=== PATIENT | female | born 1975 | race Caucasian/White ===

== ENCOUNTER 2016-09-26 13:24 | Emergency (ER) | payer SELFPAY ==
--- NOTE | 2016-09-26 13:38 | ER Document Report ---
ED Medical Screen (RME) - General Stated Complaint: BODY ACHES,CHILLS,FEVER,COUGH Mode of Arrival: Ambulatory Information source: Patient Notes: Patient presents to the emergency department with complaints of body aches that started last night. Fever of 103 last night with diarrhea this morning. Patient did not obtain a flu vaccine this year. Patient took 2 Excedrin at 9: 00 this morning. I have greeted and performed a rapid initial assessment of this patient. A comprehensive ED assessment and evaluation of the patient, analysis of test results and completion of the medical decision making process will be conducted by additional ED providers. TRAVEL OUTSIDE OF THE [place] IN LAST 30 DAYS: No - Related Data Allergies/Adverse Reactions: No Known Allergies Allergy (Verified 08/15/16 09:49) Past Medical History Skin Medical History: Reports Hx Psoriasis
--- NOTE | 2016-09-26 14:46 | ER Document Report ---
ED Flu Like - General Chief Complaint: Back Pain Stated Complaint: BODY ACHES,CHILLS,FEVER,COUGH Mode of Arrival: Ambulatory Notes: Patient has flulike symptoms. She says that she started having body aches Saturday evening. Yesterday she started running a fever and developed a cough and has generalized body aches as well as a bad headache. The cough was somewhat productive at first, but now it's basically dry. She's not had any vomiting, but has had a little bit of diarrhea. LMP September 10. TRAVEL OUTSIDE OF THE [place] IN LAST 30 DAYS: No - Related Data Allergies/Adverse Reactions: No Known Allergies Allergy (Verified 09/26/16 13:38) Past Medical History - General Information source: Patient - Social History Smoking Status: Never Smoker Cigarette use (# per day): No Chew tobacco use (# tins/day): No Frequency of alcohol use: None Drug Abuse: None Family History: Reviewed & Not Pertinent Patient has suicidal ideation: No Patient has homicidal ideation: No Skin Medical History: Reports Hx Psoriasis Review of Systems - Review of Systems Notes: REVIEW OF SYSTEMS: CONSTITUTIONAL : Has had fever. EENT: Denies eye, ear, nose or mouth or throat pain or other symptoms. CARDIOVASCULAR: Denies chest pain. RESPIRATORY: See history of present illness. GASTROINTESTINAL: Denies abdominal pain or nausea, vomiting, but some diarrhea. GENITOURINARY: Denies difficulty or painful urinating, urinary frequency, blood in urine. MUSCULOSKELETAL: Denies back or neck pain. Denies joint pain or swelling. SKIN: Denies rash or skin lesions. NEUROLOGICAL: Denies LOC or altered mental status. Has a bad headache. Denies sensory loss or motor deficits. ALL OTHER SYSTEMS REVIEWED AND NEGATIVE. Physical Exam - Vital signs Interpretation: Febrile. No: Hypotensive, Hypoxic - Notes Notes: PHYSICAL EXAMINATION: GENERAL: Well-appearing, in no acute distress. Anxious. HEAD: Atraumatic, normocephalic. EYES: Pupils equal round and reactive to light, extraocular movements intact. ENT: oropharynx clear without exudates. Moist mucous membranes. NECK: Normal range of motion, supple. LUNGS: Breath sounds clear and equal bilaterally. HEART: Regular rate and rhythm without murmurs. ABDOMEN: Soft, nontender. No guarding or rebound. NEUROLOGICAL: Normal speech, normal gait. Normal sensory, motor, and reflex exams. Awake, alert, and oriented x3. Cranial nerves normal. SKIN: Warm, dry, no rashes. Course - Re-evaluation Re-evalutation: Discussed treatment options with this patient. She's basically had the onset of symptoms now for almost 36 hours. I don't think the benefits that she'll receive taking Tamiflu are cost-effective in this case and have advised them so. I will write a prescription for Tamiflu the patient wishes to have it but she's declined. Discharge - Discharge Clinical Impression: Influenza A Condition: Stable Disposition: HOME, SELF-CARE Additional Instructions: INFLUENZA: The physician feels that you have influenza -- the "flu". Influenza is an infection caused by a virus. Symptoms include generalized aching, fever, headache, dry cough, and fatigue. Some patients with the flu also have nausea, vomiting, and diarrhea. The fever and aches usually last two to four days, with the cough persisting another one to two weeks. Treatment of the flu, for the most part, is simply treatment of symptoms. Rest, drink plenty of fluids, and use acetaminophen for fever and aches. Do not take aspirin. There is an anti-viral medication, called Tamiflu, which may help in "type A" flu, but it's not helpful in every case of flu, and only works if started within the first 24 - 48 hours of the start of symptoms. The physician will determine whether this medication can help you. To prevent spread of the virus, use good handwashing. Shared toys should be cleaned with disinfectant. Clean the toilets, sinks, and counter surfaces in bathrooms. Launder clothing in hot water. What are conditions that should receive medical attention? The development of difficulty breathing. Lip color changes to blue or purple. Persistent vomiting and unable to keep liquids down with signs of dehydration such as: dizziness when standing, unable to urinate, or if child/infant is crying no tears are noticed. Is less responsive than normal or becomes confused. How do I decrease the spread of flu in my home? Taking care of the sick patient at home: Keep the sick person in a room separate from the common areas of the house. Keep the "sickroom" door closed. If the person with the flu needs to leave the home, they should cover their nose/mouth when coughing or sneezing and wear a disposable (surgical) mask if available. These masks may be available at your local pharmacy, medical supply and hardware store. If the sick person is in common areas of the house, have them wear a surgical mask. If possible, have the sick person use a separate bathroom that should be cleaned daily with a household disinfectant. If you are the caregiver: Avoid being face to face with the sick adult person as much as possible. Try to stay at least 6 feet away and wear a disposable surgical mask when possible. When holding small children who are sick, place their chin on your shoulder so that they will not cough in your face. Wash your hands after you touch the sick person or handle their tissues and laundry. Wear a mask if you leave home, as you may be infected from taking care of someone and not know it yet. Watch yourself and others in the home for flu symptoms and contact your doctor if symptoms occur. NOTE: Antiviral medication used to reduce the symptoms of the flu works only if taken within 48 hours, and best within 24 hours of symptom onset. Household Cleaning, laundry and waste disposal: Tissues and other disposable items used by the sick person should be thrown away in the trash. Wash your hands after touching these used items. No special waste disposal is required. Keep surfaces (especially bedside tables, bathroom surfaces, and toys for children) clean by wiping them down with a safe household disinfectant according to the directions on the product label. Per Center for Disease Control advice, most people will not receive testing to confirm flu. Also based on the person's health history and onset of symptoms, not all patients will receive prescriptions for antiviral medications. If you have questions related to this, please ask your healthcare provider. For more information, you can call the Centers for Disease Control and Prevention (CDC) Hotline at 4-591-YLP-INFO This line is available in Telugu and Slovak, 24 hours a day, 7 days a week. Or www.[employer] or www.cdc.gov Flu-Like Illness Home Instructions: The influenza virus infection can cause a wide rage of symptoms, including: Fever, cough, sore throat, body aches, headaches, chills, fatigue, with some patients reporting diarrhea and vomiting Like seasonal influenza A, H1N1 ("swine flu")in humans can vary in severity from mild to severe Severe illness with pneumonia, respiratory failure and even is possible Certain groups might be more likely to develop a severe illness from H1N1 infection. Sometimes bacterial infections may occur at the same time as or after infection with influenza viruses and lead to pneumonias, ear infections, or sinus infections. How Flu Spreads The main way that influenza viruses spread is through respiratory droplets of coughs and sneezes. This can happen when someone with the infection coughs or sneezes and the particles fly through the air and land on other people and surfaces. If the person covers their mouth and nose with their hand but does not wash their hands immediately, then these germs are passed onto the next object that they touch. People with Influenza A or suspected H1N1 (swine flu) who are cared for at home should: Check with their doctor about any special care that they might need if they are or have a health condition such as diabetes, heart disease, asthma or emphysema. Also, limit caregiver to one (if possible). women or those with chronic health conditions should not take care of the flu patient unless necessary. Check with their doctor about whether or not medications are needed that may lessen the symptoms of the flu. Stay at home until 24 hours fever free without the use of fever reducing medication. Get plenty of rest and avoid other healthy people in your home. Drink plenty of clear liquids to keep from getting dehydrated. Take medications like Tylenol (Acetaminophen), Advil/Motrin/Nuprin ( Ibuprofen) or Aleve (Naproxen) for fevers and aches. All children under the age of 18 years of age should not take aspirin or products containing aspirin (e.g. Pepto Bismol), as this can cause a rare serious illness called Kelsy Syndrome. Over the counter medications for flu and colds may help, but it is very important to follow the package directions. Remember that the medicine may help the symptoms, but it will not help prevent others from getting sick if they are around you. Cover coughs and sneezes using your bent arm. Clean hands with soap and water or an alcohol-based hand rub often, especially after using tissues to cough or sneeze. Encourage hand washing frequently for all people living in the home! The sick person should not have visitors other than caregivers. Encourage concerned loved ones to call instead of visit. Avoid close contact with others-do not go to work or school while sick. USE OF ACETAMINOPHEN (Tylenol): Acetaminophen may be taken for pain relief or fever control. It's much safer than aspirin, offering a wider range of "safe" dosages. It is safe during . Some brand names are Tylenol, Panadol, Datril, Anacin 3, Tempra, and Liquiprin. Acetaminophen can be repeated every four hours. The following are maximum recommended dosages: WEIGHT Dose Drops Elixir Chewable( 80mg) (LBS.) drprs=droppers tsp=teaspoon >89 pounds or adults 650 mg to 900 mg Acetaminophen can be repeated every four hours. Maximum dose not to exceed 4000 mg a day. These maximum recommended dosages are slightly higher than the dosages written on the product container, but these dosages are very safe and below the toxic dosage for acetaminophen. ORAL NARCOTIC MEDICATION: You have been given a prescription for pain control. This medication is a narcotic. It's best taken with food, as nausea can result if taken on an empty stomach. Don't operate machinery or drive within six hours of taking this medication. Do not combine this medicine with alcohol, or with any medication which can cause sedation (such as cold tablets or sleeping pills) unless you get permission from the physician. Narcotics tend to cause constipation. If possible, drink plenty of fluids and eat a diet high in fiber and fruits. Antinausea Medication You have been given a medication to suppress nausea and vomiting. This type of medication can be given as a shot, pill, or suppository. It will usually last for many hours. Pills and shots usually last six to eight hours, suppositories last about 12 hours. For the typical illness, only one or two doses of the medication may be necessary. Mild lightheadedness may occur. This type of medicine can cause drowsiness. Do not drive or operate dangerous machinery while under its influence. Do not mix with alcohol. See your doctor at once if you have muscle spasms or tightness, or uncontrollable motions (particularly of the neck, mouth, or jaw). Persistent vomiting or severe lightheadedness should also be evaluated by the physician. FOLLOW-UP CARE: If you have been referred to a physician for follow-up care, call the physician s office for an appointment as you were instructed or within the next two days. If you experience worsening or a significant change in your symptoms, notify the physician immediately or return to the Emergency Department at any time for re-evaluation. As we discussed, it is likely too late to start taking Tamiflu to be of any benefit. Since it's over 24 hours since the onset of your symptoms, I recommend symptomatic treatment with something for nausea and something for your aches and pains and headache. Drink plenty of fluids. A note for work is being provided for you until Saturday. Prescriptions: Oxycodone HCl/Acetaminophen [Percocet 10-325 Mg Tablet] 1 each PO Q4HP PRN #15 tablet PRN Reason: Promethazine HCl [Phenergan 25 mg Tablet] 25 mg PO Q4HP PRN #20 tablet PRN Reason: Forms: Return to Work Referrals: ARVIN MATTHEWS MD [Primary Care Provider] - Follow up as needed
[2016-09-26 21:22] VITALS: BP 143/80
== END 2016-09-26 14:50 | disposition home or self-care (01) ==
LOC: ER 13:24
DX: J11.1 Influenza due to unidentified influenza virus with other respiratory manifestations (principal); R52 Pain, unspecified; R51 Headache; R05 Cough; R19.7 Diarrhea, unspecified; R50.9 Fever, unspecified
CPT/HCPCS: 87804; 99283

== ENCOUNTER 2018-01-31 19:31 | Emergency (ER) | payer SELFPAY ==
--- NOTE | 2018-01-31 20:33 | ER Document Report ---
ED GI Bleed / Rectal Pain - General Chief Complaint: Hemorrhoids Stated Complaint: RECTAL PAIN Time Seen by Provider: 01/31/18 20:25 Mode of Arrival: Ambulatory Information source: Patient TRAVEL OUTSIDE OF THE [place] IN LAST 30 DAYS: No - HPI Patient complains to provider of: Rectal pain Onset: Last week Notes: Patient is here with complaints of rectal pain. She states that she has been having rectal pain for the past several days. She states that she was having a lot of diarrhea due to stress. She states that the diarrhea has resolved but now she is having a lot of rectal pain. She has been using [id number] medications for hemorrhoids but over the last 2 days the pain is gotten much worse. No fever. No drainage. No nausea, vomiting. No abdominal pain. No chest pain or shortness of breath. No rash. No other complaints at this time. Nothing makes her symptoms better or worse. - Related Data Allergies/Adverse Reactions: No Known Allergies Allergy (Verified 09/26/16 13:38) Past Medical History - Social History Smoking Status: Current Every Day Smoker Family History: Reviewed & Not Pertinent Renal/ Medical History: Denies: Hx Peritoneal Dialysis Skin Medical History: Reports Hx Psoriasis Review of Systems - Review of Systems -: Yes All other systems reviewed and negative Physical Exam - Vital signs Vitals: Temp Pulse Resp BP Pulse Ox 98.7 F 81 16 130/69 H 99 01/31/18 19:52 01/31/18 19:52 01/31/18 19:52 01/31/18 19:52 01/31/18 19:52 - Notes Notes: GENERAL: alert, cooperative, nontoxic, no distress. HEAD: normocephalic, atraumatic EYES: conjunctiva pink without discharge, no external redness or swelling. EARS: no external swelling, no external redness NOSE: atraumatic, no external swelling MOUTH/THROAT: mucous membranes moist and pink, posterior pharynx without erythema, swelling, exudate. No trismus or drooling. NECK: soft, supple, full range of motion, no meningismus. CHEST: no distress, lungs clear and equal throughout. No wheezing, rales, rhonchi. CARDIAC: regular rate and rhythm, no murmur, normal capillary refill, normal pulses. No peripheral edema noted. ABDOMEN: Soft, nontender. BACK: full range of motion, no CVA tenderness. EXTREMITIES: full range of motion of all extremities. No redness, no swelling. NEURO: alert and oriented x 3, no focal deficits, full range of motion of all extremities. PYSCH: appropriate mood, affect. Patient is cooperative. SKIN: pink, warm, dry, no rash. RECTAL: Performed with female enterer at the bedside. No external lesions. No thrombosed hemorrhoids. Normal rectal tone. Possible tender mass on the right in the deeper rectal area. No drainage. Course - Re-evaluation Re-evalutation: 01/31/18 23:39 Patient is nontoxic appearing with stable vitals. She is here with complaints of rectal pain. She is noted to have some rectal pain on deep rectal exam. It is possible that she could have some internal hemorrhoid as a source of her pain. This point the patient will be discharged home with Anusol suppositories as well as some Sweeden. She will be given referral to GI. She is instructed to drink plenty fluids. Eat a high-fiber diet. To follow-up with GI if not better in the next week, and to follow-up sooner if she develops worsening pain , high fever, persistent vomiting, or has any further concerns. The patient is noted to have elevated blood pressure during today's emergency department visit. The patient was informed of this finding. The patient was instructed that this may be related to pre-hypertension and requires further evaluation with a primary care provider. The patient has no hypertensive symptoms at this time. The patient's emergency department workup and current diagnosis were explained to the patient and or family. Follow-up instructions were provided. Medications if prescribed were discussed. Instructions for when to return to the emergency department including specific worrisome symptoms were discussed with the patient and/or family. - Vital Signs Vital signs: Temp Pulse Resp BP Pulse Ox 98.7 F 81 16 130/69 H 99 01/31/18 19:52 01/31/18 19:52 01/31/18 19:52 01/31/18 19:52 01/31/18 19:52 - Laboratory Result Diagrams: 01/31/18 21:40 01/31/18 21:40 Laboratory results interpreted by me: 01/31/18 01/31/18 21:40 21:40 Hgb 11.6 L Hct 35.0 L Sodium 146.0 H Potassium 3.5 L Chloride 108 H - Diagnostic Test Radiology reviewed: Image reviewed, Reports reviewed - No acute abnormality a CT of the abdomen and pelvis with IV contrast Discharge - Discharge Clinical Impression: Rectal pain, Acute hemorrhoid Condition: Stable Disposition: HOME, SELF-CARE Instructions: Hemorrhoids ([facility]) Additional Instructions: Take medication as prescribed. Drink plenty fluids. Follow-up with GI if not better in 1 week, sooner for worsening pain, fever, bleeding, persistent vomiting, or for any further concerns. Your blood pressure was elevated during today's visit. Have this rechecked with your doctor. The medication you were prescribed today may cause drowsiness. Do not drive or operate heavy machinery while taking this medication. Prescriptions: Hydrocodone/Acetaminophen [Sweeden 5-325 mg Tablet] 2 tab PO Q6H PRN #15 tab PRN Reason: Hydrocortisone Acetate [Anusol Hc 25 mg Supp.rect] 1 supp.rect [place] BID #14 supp.rect Forms: Elevated Blood Pressure, Smoking Cessation Education Referrals: ARVIN MATTHEWS MD [Primary Care Provider] - Follow up as needed ERMELINDA SOLER MD [ACTIVE STAFF] - Follow up as needed ANNA TORRES MD [ACTIVE STAFF] - Follow up as needed
[2018-01-31] MEDS ORDERED: KETOROLAC TROMETHAMINE INJ/PF 30 MG/1 ML SDV IV ONE (21:06)
[2018-01-31 21:57] LABS: ABSOLUTE LYMPHOCYTES (AUTO) 1.8 10^3/uL (0.5-4.7); ABSOLUTE MONOCYTES (AUTO) 0.4 10^3/uL (0.1-1.4); ABSOLUTE NEUT (AUTO) 3.6 10^3/uL (1.7-8.2); BASOPHILS % (AUTO) 0.5 % (0-2); EOSINOPHILS % (AUTO) 0.5 % (0-6); HEMOGLOBIN 11.6 g/dL (12.0-15.5); LYMPHOCYTES % (AUTO) 30.6 % (13-45); MEAN CORPUSCULAR HEMOGLOBIN 29.1 pg (27.0-33.4); MEAN CORPUSCULAR HGB CONC 33.3 g/dL (32.0-36.0); MEAN CORPUSCULAR VOLUME 88 fl (80-97); MONOCYTES % (AUTO) 6.5 % (3-13); PLATELET COUNT 248 10^3/uL (150-450); SEGMENTED NEUTROPHILS % (AUTO) 61.9 % (42-78); TOTAL CELLS COUNTED % (AUTO) 100 %; WHITE BLOOD COUNT 5.8 10^3/uL (4.0-10.5)
[2018-01-31 21:59] LABS: ALANINE AMINOTRANSFERASE 23 U/L (9-52); ALBUMIN 4.3 g/dL (3.5-5.0); ALKALINE PHOSPHATASE 66 U/L (38-126); ANION GAP 13 (5-19); ASPARTATE AMINO TRANSFERASE 20 U/L (14-36); BILIRUBIN,DIRECT 0.3 mg/dL (0.0-0.4); BILIRUBIN,TOTAL 0.4 mg/dL (0.2-1.3); BLOOD UREA NITROGEN 16 mg/dL (7-20); CALCIUM 9.8 mg/dL (8.4-10.2); CARBON DIOXIDE 25 mmol/L (22-30); CHLORIDE 108 mmol/L (98-107); GLUCOSE 90 mg/dL (75-110); POTASSIUM 3.5 mmol/L (3.6-5.0); TOTAL PROTEIN 6.7 g/dL (6.3-8.2)
--- NOTE | 2018-01-31 23:04 | RADIOLOGY REPORT (SQ) ---
EXAM DESCRIPTION: CT ABDOMEN PELVIS WITH IV CONTRAST CLINICAL HISTORY: 43 years Female, right rectal pain, possible mass on exam Comparison: None. Technique: IV contrast. Coronal and sagittal reformat. This exam was performed according to our departmental dose-optimization program, which includes automated exposure control, adjustment of the mA and/or kV according to patient size and/or use of iterative reconstruction technique.[facility]: Dose Right [facility]: CareDose [facility]: Dose Right [facility]: Teradose 4D [facility]: [employer] LIMITATIONS: None. Findings: No ascites. No rectal mass discerned, as queried. Prominent nonspecific cervix with nabothian cyst. Inferior thorax, likely benign 0.4 cm low-attenuation cyst or hemangioma right hepatic lobe, cholecystectomy clips, pancreas, spleen, adrenals, renal system, gastrointestinal tract, no evidence of appendicitis, lymphatics, vasculature, and musculoskeleton appear otherwise unremarkable. IMPRESSION: No acute findings.
[2018-02-01 00:07] VITALS: BP 121/81
== END 2018-02-01 00:05 | disposition home or self-care (01) ==
LOC: ER 19:31
DX: K64.8 Other hemorrhoids (principal); R19.7 Diarrhea, unspecified
CPT/HCPCS: 99284; 96374; 36415; 85025; 80053; 74177; J1885

== ENCOUNTER 2018-08-24 19:17 | Emergency (ER) | payer OTHER ==
[2018-08-24 19:34] VITALS: BP 124/54
[2018-08-24] MEDS ORDERED: IBUPROFEN 800 MG TABLET PO ONE (19:44)
--- NOTE | 2018-08-24 19:45 | ER Document Report ---
HPI - HPI Patient complains to provider of: Anger injury Time Seen by Provider: 08/24/18 19:39 Onset: Yesterday Onset/Duration: Sudden Quality of pain: Achy Pain Level: 4 Context: Patient states that she was carrying a dog and almost dropped it and as she was attempting to catch the dog she struck her hand against the floor. Patient complains of left fifth finger tenderness, swelling and bruising. Patient is right-hand dominant. Associated Symptoms: Other - Left fifth finger injury Exacerbated by: Movement Relieved by: Denies Similar symptoms previously: No Recently seen / treated by doctor: No - ROS ROS below otherwise negative: Yes Systems Reviewed and Negative: Yes All other systems reviewed and negative - GASTROINTESTINAL Gastrointestinal: DENIES: Nausea - REPRODUCTIVE Reproductive: DENIES: : - MUSCULOSKELETAL Musculoskeletal: REPORTS: Extremity pain, Swelling - DERM Skin Color: Ecchymosis Skin Problems: None Past Medical History - General Information source: Patient - Social History Smoking Status: Never Smoker Frequency of alcohol use: None Drug Abuse: None Occupation: Animal house Family History: Reviewed & Not Pertinent Renal/ Medical History: Denies: Hx Peritoneal Dialysis Skin Medical History: Reports Hx Psoriasis Past Surgical History: Reports: Hx Cholecystectomy Vertical Provider Document - CONSTITUTIONAL Agree With Documented VS: Yes Exam Limitations: No Limitations General Appearance: WD/WN, No Apparent Distress - INFECTION CONTROL TRAVEL OUTSIDE OF THE [place] IN LAST 30 DAYS: No - HEENT HEENT: Atraumatic, Normocephalic - NECK Neck: Normal Inspection - RESPIRATORY Respiratory: No Respiratory Distress - CARDIOVASCULAR Pulses: Normal: Radial - BACK Back: Normal Inspection - MUSCULOSKELETAL/EXTREMETIES Musculoskeletal/Extremeties: Tender - Left fifth finger tenderness with swelling and ecchymosis, no obvious tendon deficit, Edema, Eccymosis Notes: Tenderness worse about the proximal middle phalanx - NEURO Level of Consciousness: Awake, Alert, Appropriate Motor/Sensory: No Motor Deficit - DERM Integumentary: Warm, Dry, No Rash Course - Vital Signs Vital signs: Temp Pulse Resp BP Pulse Ox 97.7 F 74 124/54 L 99 08/24/18 19:33 08/24/18 19:33 08/24/18 19:33 08/24/18 19:33 - Diagnostic Test Radiology reviewed: Image reviewed Procedures - Immobilization Left Finger 5th digit Pre-Proc Neuro Vasc Exam: Normal Immobilizer type: Finger splint (Static) Performed by: PCT Post-Proc Neuro Vasc Exam: Normal Alignment checked and good: Yes Discharge - Discharge Clinical Impression: Finger fracture, left Qualifiers: Encounter type: initial encounter Finger: little finger Fracture type: closed Phalanx: middle Fracture alignment: displaced Qualified Code(s): S62.627A - Displaced fracture of middle phalanx of left little finger, initial encounter for closed fracture Condition: Stable Disposition: HOME, SELF-CARE Instructions: Fractured Finger ([facility]), Ice & Elevation ([facility]), Splint Precautions ([facility]) Additional Instructions: Return immediately for any new or worsening symptoms Followup with your primary care provider, call tomorrow to make a followup appointment Follow-up with orthopedics for further evaluation, call tomorrow for an appointment Prescriptions: Naproxen [Naprosyn 250 Nmg Tablet] 1 tab PO BID #14 tablet Referrals: ARVIN MATTHEWS MD [Primary Care Provider] - Follow up as needed [facility] [Provider Group] - Follow up tomorrow
[2018-08-24] MEDS ORDERED: HYDROCODONE/ACETAMINOPHEN 5-325 MG (6 TAB/ER DISP) PO PRN (20:03)
--- NOTE | 2018-08-24 20:42 | RADIOLOGY REPORT (SQ) ---
EXAM DESCRIPTION: FINGER LEFT COMPLETED DATE/TIME: 08/24/2018 8:19 pm REASON FOR STUDY: Finger hyperextended/injured. Pain, swelling COMPARISON: None. NUMBER OF VIEWS: Three views. TECHNIQUE: AP view of the left hand and lateral, and oblique images acquired of the left fifth finge r. LIMITATIONS: None. FINDINGS: MINERALIZATION: Normal. BONES: There is a mildly displaced fracture at the base of the 5th middle phalanx with the fracture l ine extending into the proximal interphalangeal joint. SOFT TISSUES: There is mild diffuse soft tissue swelling at the left 5th finger. No radiopaque forei gn body is identified. IMPRESSION: Mildly displaced intra-articular fracture at the base of the 5th middle phalanx. TECHNICAL DOCUMENTATION: JOB ID: [id number] 2010 [employer]- All Rights Reserved Reading location - IP/workstation name: [email or web address]
== END 2018-08-24 20:36 | disposition home or self-care (01) ==
LOC: ER 19:17
PROC: 2W3KX1Z Immobilization of Left Finger using Splint (ICD-10-PCS; principal; 2018-08-24)
DX: S62.627A Displaced fracture of middle phalanx of left little finger, initial encounter for closed fracture (principal); M79.645 Pain in left finger(s); W22.8XXA Striking against or struck by other objects, initial encounter
CPT/HCPCS: 99283

== ENCOUNTER 2019-02-22 00:55 | Emergency (ER) | payer MEDICAID, OTHER ==
[2019-02-22] MEDS ORDERED: MORPHINE SULFATE 10 MG/ML INJ IV PRN (01:54)
[2019-02-22] MEDS ORDERED: METOCLOPRAMIDE HCL INJ/PF 10 MG/2 ML SDV IV ONE ×2 (01:54→04:54)
[2019-02-22] MEDS ORDERED: FAMOTIDINE 20 MG TABLET PO ONE (01:54)
[2019-02-22] MEDS ORDERED: SUCRALFATE 1 GM TABLET PO ONE (01:54)
[2019-02-22] MEDS ORDERED: MAG HYDROX/AL HYDROX/SIMETH SUSP 30 ML UDCUP PO ONE (01:54)
[2019-02-22] MEDS ORDERED: LIDOCAINE 2% VISCOUS SOLN 20 ML UDCUP PO ONE (01:54)
[2019-02-22 01:55] LABS: ABSOLUTE LYMPHOCYTES (AUTO) 1.1 10^3/uL (0.5-4.7); ABSOLUTE MONOCYTES (AUTO) 0.2 10^3/uL (0.1-1.4); ABSOLUTE NEUT (AUTO) 7.4 10^3/uL (1.7-8.2); BASOPHILS % (AUTO) 0.3 % (0-2); EOSINOPHILS % (AUTO) 0.1 % (0-6); HEMATOCRIT 38.3 % (36.0-47.0); HEMOGLOBIN 13.1 g/dL (12.0-15.5); LYMPHOCYTES % (AUTO) 12.9 % (13-45); MEAN CORPUSCULAR HEMOGLOBIN 29.7 pg (27.0-33.4); MEAN CORPUSCULAR HGB CONC 34.1 g/dL (32.0-36.0); MEAN CORPUSCULAR VOLUME 87 fl (80-97); MONOCYTES % (AUTO) 2.5 % (3-13); PLATELET COUNT 284 10^3/uL (150-450); RED BLOOD COUNT 4.41 10^6/uL (3.72-5.28); RED CELL DISTRIBUTION WIDTH 13.9 % (11.5-14.0); SEGMENTED NEUTROPHILS % (AUTO) 84.2 % (42-78); TOTAL CELLS COUNTED % (AUTO) 100 %; WHITE BLOOD COUNT 8.7 10^3/uL (4.0-10.5)
--- NOTE | 2019-02-22 01:55 | ER Document Report ---
ED General - General Chief Complaint: Chest Pain > 30 Stated Complaint: CHEST PAIN Time Seen by Provider: 02/22/19 01:14 Primary Care Provider: ARVIN MATTHEWS MD [Primary Care Provider] - Follow up as needed Notes: Patient is a 44-year-old female without chronic medical problems who presents with approximately 10 hours of epigastric abdominal pain. States that the pains are low she was driving home from [place]. Stated began as a cramping, burning, constant discomfort in her epigastrium. States that she had a gum puller multiple times on her drive home to vomit on the side of the road which did not seem to improve her symptoms but actually made the pain worse. Nothing is been noted to improve the pain. She currently notes that the pain is a severe, constant pain in her upper abdomen. It is associated nausea and ongoing vomiting. Denies history of similar symptoms in the past. Does state that she has been under significant amount of stress lately. Had a normal bowel movement earlier this morning. Has not had any diarrhea. Has a remote surgical history of a cholecystectomy. Denies any other chronic medical issues. Has not seen her primary care physician regarding today's concerns. TRAVEL OUTSIDE OF THE [place] IN LAST 30 DAYS: No - Related Data Allergies/Adverse Reactions: No Known Allergies Allergy (Verified 09/26/16 13:38) Past Medical History - General Information source: Patient - Social History Smoking Status: Former Smoker Frequency of alcohol use: None Drug Abuse: Marijuana Lives with: Family Family History: Reviewed & Not Pertinent Patient has suicidal ideation: No Patient has homicidal ideation: No Renal/ Medical History: Denies: Hx Peritoneal Dialysis Skin Medical History: Reports Hx Psoriasis Past Surgical History: Reports: Hx Cholecystectomy Review of Systems - Review of Systems Notes: Constitutional: Negative for fever. HENT: Negative for sore throat. Eyes: Negative for visual changes. Cardiovascular: Negative for chest pain. Respiratory: Negative for shortness of breath. Gastrointestinal: Positive for upper abdominal pain and vomiting Genitourinary: Negative for dysuria. Musculoskeletal: Negative for back pain. Skin: Negative for rash. Neurological: Negative for headaches, weakness or numbness. 10 point ROS negative except as marked above and in HPI. Physical Exam - Vital signs Vitals: Temp Resp BP 98.7 F 34 H 134/74 H 02/22/19 00:58 02/22/19 00:58 02/22/19 00:58 Interpretation: Hypertensive, Tachypneic Notes: PHYSICAL EXAMINATION: GENERAL: Appears uncomfortable, actively vomiting at the time of my initial assessment. HEAD: Atraumatic, normocephalic. EYES: Pupils equal round and reactive to light, extraocular movements intact, sclera anicteric, conjunctiva are normal. ENT: nares patent, oropharynx clear without exudates. Moist mucous membranes. NECK: Normal range of motion, supple without lymphadenopathy LUNGS: Breath sounds clear to auscultation bilaterally and equal. No wheezes rales or rhonchi. HEART: Regular rate and rhythm without murmurs ABDOMEN: Soft, focal tenderness to the epigastrium but no other localized area tenderness on palpation, normoactive bowel sounds. No guarding, no rebound. No masses appreciated. EXTREMITIES: Normal range of motion, no pitting or edema. No cyanosis. NEUROLOGICAL: No focal neurological deficits. Moves all extremities spontaneously and on command. PSYCH: Moderately anxious SKIN: Warm, Dry, normal turgor, no rashes or lesions noted. Course - Re-evaluation Re-evalutation: 02/22/19 01:55 Patient presents with epigastric abdominal pain with associated nausea and vomiting. She does have some focal abdominal tenderness to the epigastrium but no other localized areas of tenderness. She is 20 years status post cholecystectomy removing biliary pathology from differential. Lipase is normal. No LFT changes. Based on history and exam, I do not suspect ACS, pulmonary embolus, SBO, mesenteric ischemia, acute pancreatitis, biliary pathology, or an abdominal aortic dissection. EKG, troponin were completed to evaluate for any possibility of an atypical presentation of ACS. These are likewise noted to be normal. Patient is clear to deny distinct chest pain sitting is isolated to the epigastrium. Patient has had improvement of symptoms here with a GI cocktail. I have had a risks and benefits conversation with the patient regarding CT imaging of the abdomen and pelvis at this time. We discussed, based on today's exam and labs there is a possibility that they could have a diagnosis that could be better clarified by CT and that this could possibly warp changer. We discussed the risks of radiation to the abdomen and pelvis. We discussed the alternative of close follow-up with their primary care physician for a recheck of the abdomen within 24 hours as well as reasons to return to the emergency department. After this conversation, the patient has elected to avoid CT im aging of the abdomen and pelvis at this time. They have capacity. They have verbalized the importance of close follow-up as well as reasons to return to the emergency department including worsening abdominal pain, fever, persistent vomiting, or any other symptoms that are worrisome to them. - Vital Signs Vital signs: Temp Pulse Resp BP Pulse Ox 98.7 F 28 H 127/75 H 100 02/22/19 00:58 02/22/19 02:44 02/22/19 02:44 02/22/19 02:44 - Laboratory Result Diagrams: 02/22/19 01:30 02/22/19 01:30 Laboratory results interpreted by me: 02/22/19 02/22/19 01:30 01:30 Seg Neutrophils % 84.2 H Lymphocytes % 12.9 L Monocytes % 2.5 L Chloride 109 H Carbon Dioxide 19 L Glucose 137 H Calcium 10.3 H AST 13 L - Diagnostic Test Radiology reviewed: Image reviewed, Reports reviewed Radiology results interpreted by me: 02/22/19 04:19 Chest x-ray: No acute infiltrate or pneumothorax - EKG Interpretation by Me Additional EKG results interpreted by me: 02/22/19 04:19 Sinus rhythm, rate 78, no ST elevations or depressions. QTC is 474. Discharge - Discharge Clinical Impression: Epigastric abdominal pain Nausea and vomiting Qualifiers: Vomiting type: unspecified Vomiting Intractability: non-intractable Qualified Code(s): R11.2 - Nausea with vomiting, unspecified Condition: Good Disposition: HOME, SELF-CARE Additional Instructions: Your symptoms appear to be most consistent with stomach or upper intestinal irritation. Please begin taking famotidine 40 mg in the morning and 40 mg at night. Take Carafate prior to meals. You may also take medicine such as Pepto-Bismol or Tums to assist with your pain. Please return to emergency department immediately if you have worsening of your pain, shortness of breath, vomiting, become unable to exert yourself due to pain or difficulty breathing, you pass out, or have any pain that radiates into your arms, jaw, or back. Ple ase also return if you have any additional symptoms that are concerning to you. As we have discussed, the most important thing is lifestyle changes. You need to avoid smoking, sodas, tea, coffee, alcohol, spicy foods, and acidic foods such as citrus fruits, tomato based products, berries, and most fruit juices. Prescriptions: Famotidine 40 mg PO BID #60 tablet Sucralfate [Carafate 1 gm Tablet] 1 gm PO ACHS #120 tablet Referrals: ARVIN MATTHEWS MD [Primary Care Provider] - Follow up tomorrow
[2019-02-22] MEDS ORDERED: NORMAL SALINE 1000 ML 1,000 ML IV ONE (01:56)
[2019-02-22 02:13] LABS: ALANINE AMINOTRANSFERASE 22 U/L (9-52); ALBUMIN 4.5 g/dL (3.5-5.0); ALKALINE PHOSPHATASE 82 U/L (38-126); ANION GAP 12 (5-19); ASPARTATE AMINO TRANSFERASE 13 U/L (14-36); BILIRUBIN,DIRECT 0.2 mg/dL (0.0-0.4); BILIRUBIN,TOTAL 0.4 mg/dL (0.2-1.3); BLOOD UREA NITROGEN 13 mg/dL (7-20); CALCIUM 10.3 mg/dL (8.4-10.2); CARBON DIOXIDE 19 mmol/L (22-30); CHLORIDE 109 mmol/L (98-107); GLUCOSE 137 mg/dL (75-110); LIPASE 94.7 U/L (23-300); POTASSIUM 3.8 mmol/L (3.6-5.0); SODIUM 140.2 mmol/L (137-145); TOTAL PROTEIN 7.4 g/dL (6.3-8.2)
--- NOTE | 2019-02-22 02:29 | RADIOLOGY REPORT (SQ) ---
EXAM DESCRIPTION: XR CHEST 1 VIEW COMPLETED DATE/TME: 02/22/2019 01:14 CLINICAL HISTORY: 44 years, Female, cp COMPARISON: 12/30/2010 chest NUMBER OF VIEWS: 1 TECHNIQUE: Portable chest LIMITATIONS: None. FINDINGS: Heart size normal. Lungs clear. No pneumothorax IMPRESSION: Negative chest copyright 2010 [employer]- All Rights Reserved
[2019-02-22 05:03] VITALS: BP 148/76
--- NOTE | 2019-02-22 10:13 | EKG REPORT ---
SEVERITY:- NORMAL ECG - SINUS RHYTHM : Confirmed by: Ian Palacios MD 22-Feb-2019 10:13:16
== END 2019-02-22 05:01 | disposition home or self-care (01) ==
LOC: ER 00:55
DX: R10.13 Epigastric pain (principal); R10.816 Epigastric abdominal tenderness; R11.2 Nausea with vomiting, unspecified; F12.10 Cannabis abuse, uncomplicated; Z90.49 Acquired absence of other specified parts of digestive tract; Z87.891 Personal history of nicotine dependence
CPT/HCPCS: 93005; 96376; 99285; 96361; 96374; 96375; 36415; 83690; 84703; 85025; 80053; 84484; 71045; 93010; J3490; J2765; J2270; J7030

== ENCOUNTER 2019-09-10 13:09 | Emergency (ER) | payer SELFPAY ==
[2019-09-10] MEDS ORDERED: PROMETHAZINE HCL INJ 25 MG/1 ML VIAL IM ONE (13:37)
[2019-09-10] MEDS ORDERED: NORMAL SALINE 1000 ML 1,000 ML IV PRN (13:38)
--- NOTE | 2019-09-10 13:39 | ER Document Report ---
ED Medical Screen (RME) - General Chief Complaint: Abdominal Pain Stated Complaint: ABDOMINAL PAIN,VOMITING,DIARRHEA Time Seen by Provider: 09/10/19 13:36 Primary Care Provider: ARVIN MATTHEWS MD [Primary Care Provider] - Follow up as needed TRAVEL OUTSIDE OF THE [place] IN LAST 30 DAYS: No - HPI Notes: 09/10/19 13:38 Patient is a 44yo female who presents complaining of epigastric abdominal pain with associated nausea and vomiting that began at 5 AM today. Patient has had a cholecystectomy. Missed her last menstrual cycle. Denies alcohol intake. No fever, chest pain, shortness of breath. I have treated and performed a rapid initial assessment of this patient. A comprehensive ED assessment and evaluation of the patient, analysis of test results and completion of medical decision making process will be conducted by additional ED providers. PHYSICAL EXAMINATION: GENERAL: No acute respiratory distress. Patient is actively dry heaving and vomiting in triage and complaining of epigastric pain. Abdomen: Limited exam in triage, but tenderness over the epigastrium. - Related Data Allergies/Adverse Reactions: No Known Allergies Allergy (Verified 09/26/16 13:38) Past Medical History Renal/ Medical History: Denies: Hx Peritoneal Dialysis Skin Medical History: Reports Hx Psoriasis Past Surgical History: Reports: Hx Cholecystectomy Physical Exam - Vital signs Vitals: Pulse Resp BP Pulse Ox 77 16 110/80 100 09/10/19 13:15 09/10/19 13:15 09/10/19 13:15 09/10/19 13:15 Course - Vital Signs Vital signs: Temp Pulse Resp BP Pulse Ox 77 16 110/80 100 09/10/19 13:15 09/10/19 13:15 09/10/19 13:15 09/10/19 13:15 Doctor's Discharge - Discharge Referrals: ARVIN MATTHEWS MD [Primary Care Provider] - Follow up as needed
[2019-09-10 15:06] LABS: ABSOLUTE BASOPHILS # (AUTO) 0.1 10^3/uL (0.0-0.2); ABSOLUTE LYMPHOCYTES (AUTO) 0.7 10^3/uL (0.5-4.7); ABSOLUTE MONOCYTES (AUTO) 0.2 10^3/uL (0.1-1.4); BASOPHILS % (AUTO) 0.8 % (0-2); HEMATOCRIT 38.2 % (36.0-47.0); HEMOGLOBIN 13.2 g/dL (12.0-15.5); LYMPHOCYTES % (AUTO) 9.4 % (13-45); MEAN CORPUSCULAR HEMOGLOBIN 30.5 pg (27.0-33.4); MEAN CORPUSCULAR HGB CONC 34.5 g/dL (32.0-36.0); MEAN CORPUSCULAR VOLUME 88 fl (80-97); PLATELET COUNT 241 10^3/uL (150-450); RED BLOOD COUNT 4.33 10^6/uL (3.72-5.28); RED CELL DISTRIBUTION WIDTH 14.2 % (11.5-14.0); SEGMENTED NEUTROPHILS % (AUTO) 87.8 % (42-78); TOTAL CELLS COUNTED % (AUTO) 100 %; WHITE BLOOD COUNT 7.9 10^3/uL (4.0-10.5)
[2019-09-10] MEDS ORDERED: METOCLOPRAMIDE HCL INJ/PF 10 MG/2 ML SDV IV ONE (15:28)
[2019-09-10 15:29] LABS: ALBUMIN 4.5 g/dL (3.5-5.0); ALKALINE PHOSPHATASE 86 U/L (38-126); ANION GAP 12 (5-19); ASPARTATE AMINO TRANSFERASE 23 U/L (14-36); BILIRUBIN,DIRECT 0.2 mg/dL (0.0-0.4); BILIRUBIN,TOTAL 0.4 mg/dL (0.2-1.3); BLOOD UREA NITROGEN 15 mg/dL (7-20); CALCIUM 10.3 mg/dL (8.4-10.2); CARBON DIOXIDE 22 mmol/L (22-30); CHLORIDE 106 mmol/L (98-107); GLUCOSE 140 mg/dL (75-110); POTASSIUM 4.1 mmol/L (3.6-5.0); TOTAL PROTEIN 7.5 g/dL (6.3-8.2)
--- NOTE | 2019-09-10 15:40 | ER Document Report ---
ED General - General Chief Complaint: Nausea/Vomiting Stated Complaint: ABDOMINAL PAIN,VOMITING,DIARRHEA Time Seen by Provider: 09/10/19 13:36 Primary Care Provider: ARVIN MATTHEWS MD [Primary Care Provider] - Follow up in 3-5 days Mode of Arrival: Ambulatory Information source: Patient Notes: 44-year-old female presents emergency department with complaints of epigastric pain nausea vomiting diarrhea that started this morning upon waking. Reports she woke up with epigastric pain started having the vomiting and the diarrhea at the same time. Denies fevers. Possibly might be last menstrual period July. Denies body aches. Reports history of Kimi. Denies history of GERD. No recent antibiotics no recent trip overseas. TRAVEL OUTSIDE OF THE [place] IN LAST 30 DAYS: No - HPI Onset: This morning Onset/Duration: Sudden Quality of pain: Achy, Sharp Associated symptoms: Diarrhea, Nausea, Vomiting Exacerbated by: Denies Relieved by: Denies Similar symptoms previously: No Recently seen / treated by doctor: No - Related Data Allergies/Adverse Reactions: No Known Allergies Allergy (Verified 09/26/16 13:38) Past Medical History - General Information source: Patient Last Menstrual Period: July - Social History Smoking Status: Never Smoker Chew tobacco use (# tins/day): No Frequency of alcohol use: None Drug Abuse: None Occupation: Animal house Lives with: Family Family History: Reviewed & Not Pertinent Patient has suicidal ideation: No Patient has homicidal ideation: No Renal/ Medical History: Denies: Hx Peritoneal Dialysis Skin Medical History: Reports Hx Psoriasis Past Surgical History: Reports: Hx Cholecystectomy Review of Systems - Review of Systems Notes: Review HPI for review of systems., All other systems negative Physical Exam - Vital signs Vitals: Pulse Resp BP Pulse Ox 77 16 110/80 100 09/10/19 13:15 09/10/19 13:15 09/10/19 13:15 09/10/19 13:15 - General General appearance: Alert In distress: Mild - Patient leaning of the bed dry heaving complaining of epigastric pain, nontoxic looking - HEENT Head: Normocephalic Eyes: Normal Conjunctiva: Normal. No: Icteric, Injected Extraocular movements intact: Yes Pupils: PERRL Mucous membranes: Moist Neck: Normal, Supple - Respiratory Respiratory status: No respiratory distress Breath sounds: Normal - Cardiovascular Rhythm: Regular - Abdominal Inspection: Normal Distension: No distension Tenderness: Tender - Epigastric area - Extremities General upper extremity: Normal ROM, Normal strength General lower extremity: Normal ROM, Normal strength - Neurological Neuro grossly intact: Yes Cognition: Normal Orientation: AAOx4 Keith Coma Scale Eye Opening: Spontaneous Keith Coma Scale Verbal: Oriented Keith Coma Scale Motor: Obeys Commands Keith Coma Scale Total: 15 Speech: Normal - Psychological Associated symptoms: Normal affect, Normal mood - Skin Skin Temperature: Warm Skin Moisture: Dry Skin Color: Normal Course - Re-evaluation Re-evalutation: 09/10/19 18:04 No vomiting since medications will attempt p.o. challenge. Patient tolerating p.o. fluids without vomiting. Labs unremarkable CT negative. Patient reports she felt better after the GI cocktail. Most likely epigastric pain is related to reflux. She was instructed on all results. Instructed on possible reflux. Instructed to avoid acidy foods take MiraLAX as indicated. She was also instructed follow-up with her primary care provider for referral to GI as indicated Abdomen/Pelvis CT 09/10/19 16:55 IMPRESSION: NO ACUTE FINDINGS IN THE ABDOMEN OR PELVIS ON CT SCAN WITH IV CONTRAST. 09/10/19 14:55 09/10/19 14:55 MCV 88 fl (80-97) 09/10/19 14:55 MCH 30.5 pg (27.0-33.4) 09/10/19 14:55 MCHC 34.5 g/dL (32.0-36.0) 09/10/19 14:55 RDW 14.2 % (11.5-14.0) H 09/10/19 14:55 Seg Neutrophils % 87.8 % (42-78) H 09/10/19 14:55 Chloride 106 mmol/L (98-107) 09/10/19 14:55 Carbon Dioxide 22 mmol/L (22-30) 09/10/19 14:55 Anion Gap 12 (5-19) 09/10/19 14:55 Est GFR ( Amer) > 60 (>60) 09/10/19 14:55 Glucose 140 mg/dL (75-110) H 09/10/19 14:55 Calcium 10.3 mg/dL (8.4-10.2) H 09/10/19 14:55 Total Bilirubin 0.4 mg/dL (0.2-1.3) 09/10/19 14:55 AST 23 U/L (14-36) 09/10/19 14:55 Alkaline Phosphatase 86 U/L (38-126) 09/10/19 14:55 Total Protein 7.5 g/dL (6.3-8.2) 09/10/19 14:55 Albumin 4.5 g/dL (3.5-5.0) 09/10/19 14:55 Lipase 55.8 U/L (23-300) 09/10/19 14:55 Urine Color YELLOW 09/10/19 16:37 Urine Appearance CLOUDY 09/10/19 16:37 Urine pH 9.0 (5.0-9.0) 09/10/19 16:37 Ur Specific [place] 1.018 09/10/19 16:37 Urine Protein 100 mg/dL (NEGATIVE) H 09/10/19 16:37 Urine Glucose (UA) NEGATIVE mg/dL (NEGATIVE) 09/10/19 16:37 Urine Ketones 20 mg/dL (NEGATIVE) H 09/10/19 16:37 Urine Blood NEGATIVE (NEGATIVE) 09/10/19 16:37 09/10/19 18:46 - Vital Signs Vital signs: Temp Pulse Resp BP Pulse Ox 98.5 F 58 L 16 129/64 H 99 09/10/19 19:08 09/10/19 19:08 09/10/19 19:08 09/10/19 19:08 09/10/19 19:08 - Laboratory Result Diagrams: 09/10/19 14:55 09/10/19 14:55 Laboratory results interpreted by me: 09/10/19 09/10/19 09/10/19 14:55 14:55 16:37 RDW 14.2 H Lymph % (Auto) 9.4 L [place] % (Auto) 2.0 L Seg Neutrophils % 87.8 H Glucose 140 H Calcium 10.3 H Urine Protein 100 H Urine Ketones 20 H - Diagnostic Test Radiology reviewed: Image reviewed, Reports reviewed Discharge - Discharge Clinical Impression: Epigastric abdominal pain Nausea and vomiting Qualifiers: Vomiting type: unspecified Vomiting Intractability: non-intractable Qualified Code(s): R11.2 - Nausea with vomiting, unspecified Condition: Stable Disposition: HOME, SELF-CARE Instructions: Antinausea Medication ([facility]), Evaluation of Upper Abdominal Pain ([facility]), Gastroenterology, Intravenous (IV) Fluids ([facility]), Toradol Injection ([facility]) Additional Instructions: *You have been evaluated for epigastric abdominal pain, nausea and vomiting *Your CT was negative for an acute injury. Your labs were unremarkable. *Clear liquid diet advance as tolerated *Take medication as prescribed for nausea *Take Maalox as indicated *Follow up with a primary care provider within 1 week for recheck and referral to gastroenterology as indicated *Return to ED for worsening condition, changes, needs, increased pain, vomiting, concerns *Return to ED if not better in 24 hours Prescriptions: Mag Hydrox/Al Hydrox/Simeth [Maalox Plus Susp 30 Udcup] 15 ml PO Q6 PRN #30 udc PRN Reason: Heartburn Referrals: ARVIN MATTHEWS MD [Primary Care Provider] - Follow up in 3-5 days
[2019-09-10] MEDS ORDERED: METOCLOPRAMIDE HCL ORAL SOLN 10 MG/10 ML UDCUP PO ONE (16:21)
[2019-09-10] MEDS ORDERED: LIDOCAINE 2% VISCOUS SOLN 20 ML UDCUP PO ONE (16:21)
[2019-09-10] MEDS ORDERED: MAG HYDROX/AL HYDROX/SIMETH SUSP 30 ML UDCUP PO ONE (16:21)
[2019-09-10 16:59] LABS: AMORPHOUS SEDIMENT,URINE TRACE /HPF; APPEARANCE,URINE CLOUDY; BILIRUBIN,URINE NEGATIVE (NEGATIVE); COLOR,URINE YELLOW; GLUCOSE, URINE NEGATIVE (NEGATIVE); KETONES,URINE 20 mg/dL (NEGATIVE); PROTEIN,URINE 100 mg/dL (NEGATIVE); URINE SPECIFIC GRAVITY 1.018; UROBILINOGEN,URINE NEGATIVE mg/dL (<2.0)
--- NOTE | 2019-09-10 18:02 | RADIOLOGY REPORT (SQ) ---
EXAM DESCRIPTION: CT ABD/PELVIS WITH IV ONLY COMPLETED DATE/TIME: 09/10/2019 5:39 pm REASON FOR STUDY: abd pain COMPARISON: None. TECHNIQUE: CT scan of the abdomen and pelvis performed using helical scanning technique with dynamic intravenous contrast injection. No oral contrast. Images reviewed with lung, soft tissue, and bone w indows. Reconstructed coronal and sagittal MPR images reviewed. Delayed images for evaluation of the urinary system also acquired. All images stored on PACS. All CT scanners at this facility use dose modulation, iterative reconstruction, and/or weight based d osing when appropriate to reduce radiation dose to as low as reasonably achievable (ALARA). [facility]: Dose Right [facility]: CareDose [facility]: Dose Right [facility]: Teradose 4D [facility]: Anagear CONTRAST TYPE AND DOSE: contrast/concentration: Isovue 350.00 mg/ml; Total Contrast Delivered: 100.0 ml; Total Saline Delivered: 39.0 ml RENAL FUNCTION: GFR > 60. RADIATION DOSE: CT Rad equipment meets quality standard of care and radiation dose reduction techniq ues were employed. CTDIvol: 10.8 - 15.1 mGy. DLP: 1483 mGy-cm.. LIMITATIONS: None. FINDINGS: LOWER CHEST: No significant findings. LIVER: Normal size. No enhancing masses. No dilated ducts. SPLEEN: Normal size. No focal lesions. PANCREAS: No masses identified. No significant calcifications. No adjacent inflammation or peripancre atic fluid collections. Pancreatic duct not dilated. GALLBLADDER: Surgically absent. ADRENAL GLANDS: No significant masses. RIGHT KIDNEY AND URETER: No cysts identified. No solid masses identified. No calcified stones. No hyd ronephrosis or hydroureter. LEFT KIDNEY AND URETER: No cysts identified. No solid masses identified. No calcified stones. No hydr onephrosis or hydroureter. AORTA AND VESSELS: No aneurysm. No dissection. Renal arteries, SMA, celiac without significant stenos is. RETROPERITONEUM: No bulky retroperitoneal adenopathy. BOWEL AND PERITONEAL CAVITY: No obstruction or inflammatory changes. No free fluid. APPENDIX: Normal. PELVIS: No mass. No free fluid. Unremarkable bladder. ABDOMINAL WALL: No masses. No hernias. BONES: No acute findings. OTHER: No other significant finding. IMPRESSION: NO ACUTE FINDINGS IN THE ABDOMEN OR PELVIS ON CT SCAN WITH IV CONTRAST. TECHNICAL DOCUMENTATION: JOB ID: [id number] [place]-72 Quality ID # [id number]: Final reports with documentation of one or more dose reduction techniques (e.g., Au tomated exposure control, adjustment of the mA and/or kV according to patient size, use of iterative reconstruction technique) 2010 [employer]- All Rights Reserved Reading location - IP/workstation name: [email or web address]
[2019-09-10] MEDS ORDERED: ONDANSETRON ODT 4 MG TAB (6 TAB/ER DISP) PO PRN (18:09)
[2019-09-10 19:13] VITALS: BP 129/64
== END 2019-09-10 19:18 | disposition home or self-care (01) ==
LOC: ER 13:09
DX: R10.13 Epigastric pain (principal); R10.816 Epigastric abdominal tenderness; R11.2 Nausea with vomiting, unspecified; R19.7 Diarrhea, unspecified; Z90.49 Acquired absence of other specified parts of digestive tract
CPT/HCPCS: 99284; 96372; 96361; 96374; 36415; 83690; 85025; 81025; 80053; 81001; 74177; J3490; J2765; J2550; J7030

== ENCOUNTER 2019-11-13 23:57 | Emergency (ER) | payer SELFPAY ==
[2019-11-14] MEDS ORDERED: NORMAL SALINE 1000 ML 1,000 ML IV ONE ×2 (00:09→02:58)
[2019-11-14] MEDS ORDERED: FAMOTIDINE INJ/PF 20 MG/2 ML SDV IV ONE (00:09)
[2019-11-14] MEDS ORDERED: ONDANSETRON HCL INJ/PF 4 MG/2 ML SDV IV ONE (00:09)
--- NOTE | 2019-11-14 00:11 | ER Document Report ---
ED Medical Screen (RME) - General Chief Complaint: Vomiting/Diarrhea Stated Complaint: VOMITING,DIARRHEA Time Seen by Provider: 11/14/19 00:05 Primary Care Provider: ARVIN MATTHEWS MD [Primary Care Provider] - Follow up as needed Mode of Arrival: Wheelchair Information source: Patient Notes: Patient is a 44-year-old female presenting to the emergency department chief complaint of persistent vomiting. Patient reports vomiting is been ongoing for almost 2 months. She states she was seen here in this emergency department, states she was discharged and referred to GI. She states she went and saw a GI specialist who is going to do a endoscopy and colonoscopy on Saturday. She states that her vomiting is persistent and she is no longer able to hold down any fluids whatsoever. Exam: Upper abdominal tenderness with palpation. Patient actively vomiting in triage. I have greeted and performed a rapid initial assessment of this patient. A comprehensive ED assessment and evaluation of the patient, analysis of test results and completion of the medical decision making process will be conducted by additional ED providers. I have specifically instructed the patient or family members with the patient to immediately return to any nursing staff should anything change in the patient's condition or with their chief complaint. TRAVEL OUTSIDE OF THE [place] IN LAST 30 DAYS: No - Related Data Allergies/Adverse Reactions: No Known Allergies Allergy (Verified 09/26/16 13:38) Past Medical History Renal/ Medical History: Denies: Hx Peritoneal Dialysis Skin Medical History: Reports Hx Psoriasis Past Surgical History: Reports: Hx Cholecystectomy Physical Exam - Vital signs Vitals: Temp Pulse Resp BP Pulse Ox 97.9 F 86 24 H 127/50 H 100 11/14/19 00:06 11/14/19 00:06 11/14/19 00:06 11/14/19 00:06 11/14/19 00:06 Course - Vital Signs Vital signs: Temp Pulse Resp BP Pulse Ox 97.9 F 86 24 H 127/50 H 100 11/14/19 00:06 11/14/19 00:06 11/14/19 00:06 11/14/19 00:06 11/14/19 00:06 Doctor's Discharge - Discharge Referrals: ARVIN MATTHEWS MD [Primary Care Provider] - Follow up as needed
[2019-11-14 00:48] LABS: ABSOLUTE LYMPHOCYTES (AUTO) 1.4 10^3/uL (0.5-4.7); ABSOLUTE MONOCYTES (AUTO) 0.4 10^3/uL (0.1-1.4); BASOPHILS % (AUTO) 0.4 % (0-2); EOSINOPHILS % (AUTO) 0.1 % (0-6); TOTAL CELLS COUNTED % (AUTO) 100 %
[2019-11-14 00:56] LABS: ABSOLUTE NEUT (AUTO) 7.7 10^3/uL (1.7-8.2); HEMATOCRIT 41.3 % (36.0-47.0); HEMOGLOBIN 14.5 g/dL (12.0-15.5); LYMPHOCYTES % (AUTO) 14.7 % (13-45); MEAN CORPUSCULAR HEMOGLOBIN 30.6 pg (27.0-33.4); MEAN CORPUSCULAR VOLUME 88 fl (80-97); MONOCYTES % (AUTO) 4.2 % (3-13); PLATELET COUNT 256 10^3/uL (150-450); RED BLOOD COUNT 4.72 10^6/uL (3.72-5.28); RED CELL DISTRIBUTION WIDTH 13.7 % (11.5-14.0); SEGMENTED NEUTROPHILS % (AUTO) 80.6 % (42-78); WHITE BLOOD COUNT 9.5 10^3/uL (4.0-10.5)
[2019-11-14 01:08] LABS: ALBUMIN 4.7 g/dL (3.5-5.0); ALKALINE PHOSPHATASE 82 U/L (38-126); ANION GAP 14 (5-19); ASPARTATE AMINO TRANSFERASE 16 U/L (14-36); BILIRUBIN,DIRECT 0.3 mg/dL (0.0-0.4); BILIRUBIN,TOTAL 0.7 mg/dL (0.2-1.3); BLOOD UREA NITROGEN 21 mg/dL (7-20); CALCIUM 9.8 mg/dL (8.4-10.2); CARBON DIOXIDE 24 mmol/L (22-30); CHLORIDE 99 mmol/L (98-107); GLUCOSE 115 mg/dL (75-110); POTASSIUM 3.4 mmol/L (3.6-5.0); TOTAL PROTEIN 7.7 g/dL (6.3-8.2)
[2019-11-14 01:27] LABS: APPEARANCE,URINE SLIGHTLY-CLOUDY; BILIRUBIN,URINE NEGATIVE (NEGATIVE); COLOR,URINE YELLOW; GLUCOSE, URINE NEGATIVE (NEGATIVE); KETONES,URINE 80 mg/dL (NEGATIVE); LEUKOCYTE ESTERASE,URINE MODERATE (NEGATIVE); NITRITE,URINE NEGATIVE (NEGATIVE); PROTEIN,URINE 100 mg/dL (NEGATIVE); URINE SPECIFIC GRAVITY 1.028; UROBILINOGEN,URINE NEGATIVE mg/dL (<2.0)
[2019-11-14] MEDS ORDERED: PROMETHAZINE HCL INJ 25 MG/1 ML VIAL IV ONE (02:58)
[2019-11-14] MEDS ORDERED: KETOROLAC TROMETHAMINE INJ/PF 30 MG/1 ML SDV IV ONE (02:58)
--- NOTE | 2019-11-14 03:43 | ER Document Report ---
Entered by GIOVANNY RUIZ SCRIBE 11/14/19 0240 Acting as scribe for:DEBORAH POLLACK IV, MD ED GI/ - General Chief Complaint: Abdominal Pain Stated Complaint: VOMITING,DIARRHEA Time Seen by Provider: 11/14/19 00:05 Primary Care Provider: ARVIN MATTHEWS MD [PEDIATRICS] - Follow up as needed Mode of Arrival: Wheelchair Notes: This 44 year old female patient presents to the emergency department today with complaints of "persistent vomiting for several months". Patient was seen here in this emergency department in September for this vomiting and she was told to follow up with a GI doctor after a negative CT of her abdomen. Patient states she is being followed by Dr. Stanley (GI at [facility]) and he "has not prescribed her anything for this yet". Patient adds that she has a scheduled endoscopy/colonoscopy with Dr. Stanley in a 3 days but she "just can't wait that long". Patient additionally complains of diarrhea and epigastric abdominal pain. + Diarrhea upper abd pain TRAVEL OUTSIDE OF THE [place] IN LAST 30 DAYS: No - Related Data Allergies/Adverse Reactions: No Known Allergies Allergy (Verified 09/26/16 13:38) Past Medical History - General Information source: Patient - Social History Smoking Status: Unknown if Ever Smoked Frequency of alcohol use: None Drug Abuse: None Lives with: Family Family History: Reviewed & Not Pertinent Patient has suicidal ideation: No Patient has homicidal ideation: No Skin Medical History: Reports Hx Psoriasis Past Surgical History: Reports: Hx Cholecystectomy Review of Systems - Review of Systems Constitutional: No symptoms reported EENT: No symptoms reported Cardiovascular: No symptoms reported Respiratory: No symptoms reported Gastrointestinal: See HPI, Abdominal pain, Diarrhea, Nausea, Vomiting Genitourinary: No symptoms reported Female Genitourinary: No symptoms reported Musculoskeletal: No symptoms reported Skin: No symptoms reported Hematologic/Lymphatic: No symptoms reported Neurological/Psychological: No symptoms reported -: Yes All other systems reviewed and negative Physical Exam - Vital signs Vitals: Temp Pulse Resp BP Pulse Ox 97.9 F 86 24 H 127/50 H 100 11/14/19 00:06 11/14/19 00:06 11/14/19 00:06 11/14/19 00:06 11/14/19 00:06 - Notes Notes: Physical Exam: General: Alert, quite talkative, appears to be nauseated and states she has been vomiting throughout her stay here but the emesis bag at bedside is empty. HEENT: Normocephalic. Atraumatic. PERRL. Extraocular movements intact. Oropharynx clear. Neck: Supple. Non-tender. Respiratory: No respiratory distress. Clear and equal breath sounds bilaterally. Cardiovascular: Regular rate and rhythm. Abdominal: Complains of nausea. Non-tender. No distension. Normal Bowel Sounds. Back: No gross abnormalities. Extremities: Moves all four extremities. Upper extremities: Normal inspection. Normal ROM. Lower extremities: Normal inspection. No edema. Normal ROM. Neurological: Normal cognition. AAOx4. Normal speech. Psychological: Anxious. Skin: Warm. Dry. Normal color. Course - Re-evaluation Re-evalutation: 11/14/19 05:21 Patient is resting and is not currently vomiting. Results of ED MSE discussed with patient. All questions were answered prior to discharge. Emergency signs and symptoms, reasons to return to the emergency department discussed with patient. - Vital Signs Vital signs: Temp Pulse Resp BP Pulse Ox 98.5 F 88 18 124/72 100 11/14/19 05:00 11/14/19 05:00 11/14/19 05:00 11/14/19 05:00 11/14/19 05:00 - Laboratory Result Diagrams: 11/14/19 00:35 11/14/19 00:35 Laboratory results interpreted by me: 11/14/19 11/14/19 11/14/19 00:35 00:35 01:00 Seg Neutrophils % 80.6 H Sodium 136.9 L Potassium 3.4 L BUN 21 H Glucose 115 H Urine Protein 100 H Urine Ketones 80 H Ur Leukocyte Esterase MODERATE H Discharge - Discharge Clinical Impression: Nausea & vomiting Qualifiers: Vomiting type: unspecified Vomiting Intractability: non-intractable Qualified Code(s): R11.2 - Nausea with vomiting, unspecified Condition: Good Disposition: HOME, SELF-CARE Instructions: Antinausea Medication ([facility]), Vomiting ([facility]) Additional Instructions: Return to the Emergency Department without delay if any worse. HOME CARE INSTRUCTIONS & INFORMATION: Thank you for choosing us for your medical needs. We hope you're satisfied with the care you received. After you leave, you must properly care for your problem and, at the same time, observe its progress. Any condition can change. Some illnesses can change rapidly over hours or days. If your condition worsens, return to the Emergency Department or see your physician promptly. ABOUT YOUR X-RAYS AND EKG'S: If you had an EKG or X-rays taken, they have been read by the Emergency Physician. The X-rays and EKG's will also be read by a Radiologist or Through Operator within 24 hours. If discrepancies are noted, you will be notified by telephone. Please be certain the ED has a correct telephone number & address where you can be reached. Also, realize that some fractures or abnormalities do not show up on initial X-rays. If your symptoms continue, see your physician. ABOUT YOUR LABORATORY TEST: If you had laboratory tests, the results have been reviewed by the Emergency Physician. Some test results (for example cultures) may not be available for several days. You will be contacted if any test result shows you need additional treatment. Please be certain the ED has a correct telephone number and address where you can be reached. ABOUT YOUR MEDICATIONS: You will receive instructions on how to take your medicine on the prescription label you receive. Additional information may be provided by the Pharmacy. If you have questions afterwards, call the ED for clarification or further instructions. Some prescribed medications may cause drowsiness. Do not perform tasks such as driving a car or operating machinery without consulting your Pharmacist. If you feel you need a refill of pain medication, your condition will need re-evaluation. Please do not call for a refill of any medication. ABOUT YOUR SIGNATURE: Signature of this document acknowledges to followin. Understanding that you received emergency treatment and that you may be released before al medical problems are known or treated. Please be certain the ED has a correct phone number & address where you can be reached. 2. Acknowledgement that you will arrange for follow-up care as recommended. 3. Authorization for the Emergency Physician to provide information to your follow-up Physician in order to maximize your care. AT ANY TIME, IF YOUR SYMPTOMS CHANGE SIGNIFICANTLY OR WORSEN OR YOU DEVELOP NEW SYMPTOMS, RETURN TO THE EMERGENCY DEPARTMENT IMMEDIATELY FOR RE-EVALUATION. OUR GOAL IS TO PROVIDE EXCELLENT MEDICAL CARE! WE HOPE THAT WE HAVE MET YOUR EXPECTATIONS DURING YOUR EMERGENCY DEPARTMENT VISIT AND THAT YOU FEEL YOU HAVE RECEIVED EXCELLENT CARE! Vomiting Vomiting can be part of many illnesses. Most cases of vomiting are due to gastroenteritis, usually a viral infection in the intestinal tract. There is no specific treatment. The disease will end by itself. For now, the main danger to your child is dehydration. During the first few hours of the illness, give clear liquids, such as Pedialyte. Try to give small quantities frequently, such as a teaspoon of liquid every minute or about an ounce of fluids every five to ten minutes. Medications may be prescribed by the physician for special cases. After an hour or two of fluids without vomiting, add rice cereal, toast, applesauce, or bananas and other more solid foods to the clear liquids. Call the physician or go to the hospital if vomiting increases or blood appears in the bowel movement or vomitus; if your child fails to improve, or if signs of dehydration occur (no wet diapers for eight to twelve hours, tongue and mouth become dry, not acting as alert as usual). Prescriptions: Prochlorperazine Maleate [Compazine 10 mg Tablet] 10 mg PO Q6HP PRN #12 tablet PRN Reason: Referrals: ARVIN MATTHEWS MD [PEDIATRICS] - Follow up as needed I personally performed the services described in the documentation, reviewed and edited the documentation which was dictated to the scribe in my presence, and it accurately records my words and actions.
[2019-11-14] MEDS ORDERED: PROCHLORPERAZINE EDISYLATE INJ 10 MG/2 ML VIAL IV ONE (04:21)
[2019-11-14 06:12] VITALS: BP 106/58
== END 2019-11-14 06:12 | disposition home or self-care (01) ==
LOC: ER 23:57
DX: R11.2 Nausea with vomiting, unspecified (principal); R10.9 Unspecified abdominal pain; R19.7 Diarrhea, unspecified
CPT/HCPCS: 99284; 96361; 96374; 96375; 36415; 83690; 85025; 81025; 80053; 81001; J1885; J0780; J2550; J2405; J7030; S0028

== ENCOUNTER 2020-06-18 16:18 | Emergency (ER) | payer SELFPAY ==
--- NOTE | 2020-06-18 16:39 | ER Document Report ---
ED Medical Screen (RME) - General Chief Complaint: Vaginal Bleeding Stated Complaint: VAGINAL BLEEDING Time Seen by Provider: 06/18/20 16:34 Mode of Arrival: Ambulatory Information source: Patient Notes: HPI; 45-year-old female presents to the emergency room complaining of persistent vaginal bleeding since June 06. States she is passing clots and bleeding throughout the night. She denies any pain. Has not been seen for prior to today. PE: Alert and oriented x3. Lungs: Clear to auscultation without rales, rhonchi, wheezes. Heart: Regular rate rhythm without murmurs, rubs, gallops. I have greeted and performed a rapid initial assessment of this patient. A comprehensive ED assessment and evaluation of the patient, analysis of test results and completion of the medical decision making process will be conducted by additional ED providers. I have specifically instructed the patient or family members with the patient to immediately return to any nursing staff should anything change in the patient's condition or with their chief complaint. TRAVEL OUTSIDE OF THE [place] IN LAST 30 DAYS: No - Related Data Allergies/Adverse Reactions: No Known Allergies Allergy (Verified 09/26/16 13:38) Past Medical History Renal/ Medical History: Denies: Hx Peritoneal Dialysis Skin Medical History: Reports Hx Psoriasis Past Surgical History: Reports: Hx Cholecystectomy Physical Exam - Vital signs Vitals: Temp Pulse Resp BP Pulse Ox 98.2 F 72 16 147/80 H 99 06/18/20 16:23 06/18/20 16:23 06/18/20 16:23 06/18/20 16:23 06/18/20 16:23 Course - Vital Signs Vital signs: Temp Pulse Resp BP Pulse Ox 98.2 F 72 16 147/80 H 99 06/18/20 16:23 06/18/20 16:23 06/18/20 16:23 06/18/20 16:23 06/18/20 16:23
[2020-06-18 17:19] LABS: ABSOLUTE LYMPHOCYTES (AUTO) 1.4 10^3/uL (0.5-4.7); ABSOLUTE MONOCYTES (AUTO) 0.3 10^3/uL (0.1-1.4); ABSOLUTE NEUT (AUTO) 2.6 10^3/uL (1.7-8.2); BASOPHILS % (AUTO) 0.9 % (0-2); EOSINOPHILS % (AUTO) 1.1 % (0-6); HEMATOCRIT 35.8 % (36.0-47.0); HEMOGLOBIN 12.2 g/dL (12.0-15.5); LYMPHOCYTES % (AUTO) 31.9 % (13-45); MEAN CORPUSCULAR HEMOGLOBIN 30.7 pg (27.0-33.4); MEAN CORPUSCULAR HGB CONC 34.1 g/dL (32.0-36.0); MEAN CORPUSCULAR VOLUME 90 fl (80-97); MONOCYTES % (AUTO) 6.1 % (3-13); PLATELET COUNT 276 10^3/uL (150-450); RED BLOOD COUNT 3.98 10^6/uL (3.72-5.28); TOTAL CELLS COUNTED % (AUTO) 100 %; WHITE BLOOD COUNT 4.4 10^3/uL (4.0-10.5)
[2020-06-18 17:30] LABS: ALBUMIN 4.5 g/dL (3.5-5.0); ALKALINE PHOSPHATASE 80 U/L (38-126); ANION GAP 8 (5-19); ASPARTATE AMINO TRANSFERASE 22 U/L (14-36); BILIRUBIN,DIRECT 0.2 mg/dL (0.0-0.4); BILIRUBIN,TOTAL 0.5 mg/dL (0.2-1.3); BLOOD UREA NITROGEN 12 mg/dL (7-20); CALCIUM 9.6 mg/dL (8.4-10.2); CARBON DIOXIDE 27 mmol/L (22-30); CHLORIDE 105 mmol/L (98-107); GLUCOSE 79 mg/dL (75-110); POTASSIUM 4.4 mmol/L (3.6-5.0); TOTAL PROTEIN 7.7 g/dL (6.3-8.2)
[2020-06-18 17:31] LABS: APPEARANCE,URINE CLEAR; BILIRUBIN,URINE NEGATIVE (NEGATIVE); COLOR,URINE RED; GLUCOSE, URINE NEGATIVE (NEGATIVE); KETONES,URINE NEGATIVE (NEGATIVE); LEUKOCYTE ESTERASE,URINE NEGATIVE (NEGATIVE); NITRITE,URINE NEGATIVE (NEGATIVE); PROTEIN,URINE 30 mg/dL (NEGATIVE); URINE SPECIFIC GRAVITY 1.004; UROBILINOGEN,URINE NEGATIVE mg/dL (<2.0)
--- NOTE | 2020-06-18 18:40 | RADIOLOGY REPORT (SQ) ---
EXAM DESCRIPTION: U/S NON OB PEL TV W/DOPPLER IMAGES COMPLETED DATE/TIME: 06/18/2020 6:24 pm REASON FOR STUDY: vaginal bleeding COMPARISON: None. TECHNIQUE: Dynamic and static grayscale images acquired of the pelvis via transvaginal approach and recorded on PACS. Additional selected color Doppler and spectral images recorded. LIMITATIONS: None. FINDINGS: UTERUS: Contour normal. No mass. ENDOMETRIAL STRIPE: No focal or generalized thickening. No masses. CERVIX: Nabothian cysts, largest 2.4 cm. RIGHT OVARY AND DOPPLER: Normal size. 3.9 x 3.5 x 2.8 cm right ovarian cyst. Normal arterial vascula r flow without evidence for torsion. LEFT OVARY AND DOPPLER: Ovary not visualized. FREE FLUID: None noted. OTHER: No other significant finding. MEASUREMENTS: UTERUS: 8.1 x 4.9 x 3.9 cm ENDOMETRIAL STRIPE: 5.2 mm RIGHT OVARY: 4.3 x 4.3 x 3.2 cm LEFT OVARY: Not visualized. IMPRESSION: Nonvisualized left ovary. 3.9 x 3.5 x 2.8 cm right ovarian cyst. Normal arterial vascular flow without evidence for torsion. Nabothian cysts, largest 2.4 cm. Unremarkable endometrium. No free fluid. TECHNICAL DOCUMENTATION: JOB ID: [id number] [id number] 2010 [facility]- All Rights Reserved Rev Reading location - IP/workstation name: [email or web address]
--- NOTE | 2020-06-18 20:08 | ER Document Report ---
ED General - General Chief Complaint: Vaginal Bleeding Stated Complaint: VAGINAL BLEEDING Time Seen by Provider: 06/18/20 16:34 Mode of Arrival: Ambulatory TRAVEL OUTSIDE OF THE [place] IN LAST 30 DAYS: No - HPI Notes: Patient is a 45-year-old female who presents to the emergency department for evaluation of abnormal uterine bleeding. She stated she started her regular menstruation about 2 weeks ago, has been bleeding since then. She states it feels similar to a heavy period. She is using pads and tampons, has to get up once in the middle of the night to change them. She denies any chest pain or shortness of breath. She has absolutely no cramping or no pain. She states overall it is "just inconvenient." - Related Data Allergies/Adverse Reactions: No Known Allergies Allergy (Verified 09/26/16 13:38) Past Medical History - General Information source: Patient - Social History Smoking Status: Never Smoker Family History: Reviewed & Not Pertinent Renal/ Medical History: Denies: Hx Peritoneal Dialysis Skin Medical History: Reports Hx Psoriasis Past Surgical History: Reports: Hx Cholecystectomy Review of Systems - Review of Systems Constitutional: No symptoms reported EENT: No symptoms reported Cardiovascular: No symptoms reported Respiratory: No symptoms reported Gastrointestinal: No symptoms reported Genitourinary: No symptoms reported Female Genitourinary: See HPI Musculoskeletal: No symptoms reported Skin: No symptoms reported Neurological/Psychological: No symptoms reported Physical Exam - Vital signs Vitals: Temp Pulse Resp BP Pulse Ox 98.2 F 72 16 147/80 H 99 06/18/20 16:23 06/18/20 16:23 06/18/20 16:23 06/18/20 16:23 06/18/20 16:23 - Notes Notes: Vital signs reviewed, please refer to chart. Head is normocephalic, atraumatic. Pupils equal round, reactive to light. Neck is supple without meningismus. Heart is regular rate and rhythm. Lungs are clear to auscultation bilaterally. Abdomen is soft, nontender, normoactive bowel sounds throughout. Extremities without cyanosis, clubbing. Posterior calves are nontender. Peripheral pulses are equal. Skin is warm and dry. Patient is awake, alert, neurological exam is nonfocal. Course - Re-evaluation Re-evalutation: 06/18/20 20:12 Patient presents to the emergency department for evaluation of abnormal uterine bleeding. She is likely in the perimenopausal stages, but her ultrasound here today only showed an ovarian cyst. Her hemoglobin is low normal, but still well within normal range. I do not see any reason for pharmacological intervention at this time, and likely the bleeding will resolve on its own. I will refer her onto [facility]SEMENT SPECIAL[facility]. She voiced understanding. She understands if she develops worsening bleeding, increased pain, or any other new or concerning symptoms she needs return to the ED for further evaluation. - Vital Signs Vital signs: Temp Pulse Resp BP Pulse Ox 98.2 F 72 16 147/80 H 99 06/18/20 16:23 06/18/20 16:23 06/18/20 16:23 06/18/20 16:23 06/18/20 16:23 - Laboratory Result Diagrams: 06/18/20 16:48 06/18/20 16:48 Laboratory results interpreted by me: 06/18/20 06/18/20 16:48 16:48 Hct 35.8 L Urine Protein 30 H Urine Blood LARGE H Discharge - Discharge Clinical Impression: Abnormal vaginal bleeding Condition: Stable Disposition: HOME, SELF-CARE Instructions: Dysfunctional Uterine Bleeding ([facility]), Vaginal Bleeding ([facility]) Additional Instructions: No clear cause was found for your vaginal bleeding today. An incidental ovarian cyst was identified as well. Please follow-up with [facility]MENT SPECIAL[facility]. If you start bleeding more than 1 pad an hour, start having chest pain or shortness of avril ath, or develop any new or concerning symptoms of any sort, please return immediately to the emergency department for reevaluation. Referrals: LEYDA DONAHUE MD [ACTIVE STAFF] - Follow up as needed
[2020-06-18 20:15] VITALS: BP 122/85
== END 2020-06-18 20:15 | disposition home or self-care (01) ==
LOC: ER 16:18
DX: N93.9 Abnormal uterine and vaginal bleeding, unspecified (principal); N83.201 Unspecified ovarian cyst, right side; N88.8 Other specified noninflammatory disorders of cervix uteri
CPT/HCPCS: 36415; 76830; 80053; 81001; 84703; 85025; 93976; 99284